=== PATIENT | female | born 1975 | race African-American/Black ===

== ENCOUNTER 2019-02-23 05:59 | Inpatient (IN) | payer OTHER ==
[~2019-02-23] VITALS: Ht 170.2 cm; Wt 68.1 kg
[~2019-02-23 05:59] MED LIST: CORTISONE INJECTION; FLEET ENEMA118 ML RC; HYDROCODONE-AP1 EAC6 PO; MILK OF MA2400 MG/10 PO; NEURONTIN 300300 M1 PO; PHENERGAN 25 MG25 M1 PO; ZOFRAN ODT8 MG PO
[2019-02-23 06:03] VITALS: BP 141/84
[2019-02-23 06:32] LABS: HEMATOCRIT 42.1 % (37.0-47.0); HEMOGLOBIN 13.8 gm/dL (12.0-15.0); LYMPHOCYTES 30.7 % (24.0-44.0); MCH 29.7 pg (26.0-34.0); MCHC 32.8 g/dL (28.0-37.0); MCV 90.6 fL (80.0-100.0); PLATELET COUNT 193 thou/uL (150-400); POLYS 56.3 % (36.0-66.0); RBC 4.65 mil/uL (4.20-5.00); RDW 18.2 % (10.5-14.5); WBC 5.4 thou/uL (4.0-11.0)
[2019-02-23 06:42] LABS: CALCIUM 9.7 mg/dL (8.5-10.1); CREATININE 0.8 mg/dL (0.6-1.0); POTASSIUM 3.4 mmol/L (3.5-5.1)
[2019-02-23 06:48] LABS: ALBUMIN 3.9 g/dL (3.4-5.0); TOTAL BILIRUBIN 0.4 mg/dL (<0.1-1.0); TOTAL PROTEIN 8.1 g/dL (6.4-8.2)
[2019-02-23 07:05] LABS: URINE BILIRUBIN NEGATIVE (Negative); URINE BLOOD NEGATIVE (Negative); URINE CLARITY CLEAR; URINE COLOR YELLOW; URINE GLUCOSE-RANDOM* NEGATIVE (Negative); URINE KETONES NEGATIVE (Negative); URINE LEUKOCYTES-REFLEX NEGATIVE (Negative); URINE NITRITE-REFLEX NEGATIVE (Negative); URINE PROTEIN (DIPSTICK) NEGATIVE (Negative); URINE UROBILINOGEN 0.2 E.U./dl (0.2-1.0)
[2019-02-23 07:13] LABS: AMP/METHAMP Negative (Negative); BARBITURATES Negative (Negative); BENZODIAZEPINES Negative (Negative); COCAINE Negative (Negative); METHADONE Negative (Negative); OPIATES POSITIVE (Negative); PCP Negative (Negative); SSA (PROTEIN CONFIRMATORY) NEGATIVE (Negative)
[2019-02-23 09:14] VITALS: BP 172/76
[2019-02-23 10:09] VITALS: BP 181/75
--- NOTE | 2019-02-23 19:36 | NUR ---
PATIENT ARRIVED AT 0955, ALERT XS 3 VERY SLEEPY. V.S TAKEN, PT HAS ZOFRAN IV. PT TOOK SHOWER RODO. ALL BELONGINGS INVENTORIED. HAS 1 BOTTLE OF TIZANIDINE 4 MG TO BE TAKEN TO PHARMACY. ALSO HAS 92.00 IN COLÓN KEPT 2.00 IN COLÓN AND 2.00 IN QUARTERS. TO KEEP IN ROOM.1 STUN GUN/ TASER AND 2 BULLETS, 1 RADIO MACHINIST 90.00 IN COLÓN PUT IN VALUABLES ENVELOPE SECURITY HERE TO TAKE. ALSO HAD MARJUANNA BLUNT SECURITY INFORMED PATIENT WOULD NOT GET BACK WOULD BE DESTROYED. PT STATED UNDERSTOOD ALSO STATED GUN WAS AT HOME. CHIEF DRAFTER TO HAVE CONSENTS SIGNED. PT IS 5'7 150.2 LBS. PT DRUG SCREEN POSITIVE FOR OPIODS AND MARJUANNA. PT IS PLEASANT AND COOPERATIVE WITH CARE.
[2019-02-23 19:58] VITALS: BP 149/120
[2019-02-24 00:25] VITALS: BP 152/72
[2019-02-24 04:00] VITALS: BP 140/85
--- NOTE | 2019-02-24 06:19 | NUR ---
ASSUMED CARE AT 1900, ASSESSMENT COMPLETED. PT C/O SEVERE NAUSEA WITH VOMITING OF DARK GREEN BILE. ALSO C/O PELVIC AND ABD CRAMPING PAIN THAT SHE STATES FEELS "LIKE WHEN I GET MY CYCLE." OBTAINED ORDERS FOR ADDITIONAL ANTI-EMETICS AND IV TORADOL FOR NAUSEA AND PAIN CONTROL. DENIES SOB. PT HAD SHOWER THIS AM WITH ASSISTANCE FROM MACHINE CARTON MARKER. HAS SLEPT MOST OF THE NIGHT. PT NEVER HAD A STOOL TO SEND FOR C.DIFF SAMPLE. NO OTHER CONCERNS, WILL CONTINUE TO MONITOR.
[2019-02-24 07:25] LABS: ABSOLUTE NEUTROPHILS 5.9 thou/uL (1.4-8.2); BASOPHILS 0.3 % (0.0-2.0); HEMATOCRIT 43.6 % (37.0-47.0); HEMOGLOBIN 14.5 gm/dL (12.0-15.0); LYMPHOCYTES 15.9 % (24.0-44.0); MCH 30.2 pg (26.0-34.0); MCHC 33.2 g/dL (28.0-37.0); MCV 90.8 fL (80.0-100.0); PLATELET COUNT 182 thou/uL (150-400); POLYS 73.8 % (36.0-66.0); RDW 17.8 % (10.5-14.5)
[2019-02-24 07:30] VITALS: BP 163/87
[2019-02-24 07:37] LABS: CALCIUM 9.4 mg/dL (8.5-10.1); CREATININE 0.8 mg/dL (0.6-1.0); MAGNESIUM 1.7 mg/dL (1.8-2.4); POTASSIUM 3.4 mmol/L (3.5-5.1)
--- NOTE | 2019-02-24 08:15 | NUR ---
ASSUMED PT CARE AT 0700. ASSESSMENT COMPLETED AND IS CHARTED. UPON ENTRANCE OF ROOM PT WAS IN BED WITH A MAN SAID TO BE HER BOYFRIEND. THIS PERSON WAS ASKED TO LEAVE THE ROOM IN ORDER TO COMPLETE AN ASSESSMENT ON PATIENT. HE LEFT WILLINGLY AND COOPERATIVELY. PT WAS ASKED WHO THE MAN WAS AND SHE SAID HER BOYFRIEND. WHEN ASKED IF THIS WAS THE MAN WHO SHE HAS A RESTRAINING ORDER AGAINST PT SAID "NO, IT'S MY EX-BOYFRIEND THAT HAS A RESTRAINING ORDER". WHEN ASKED IF SHE FEELS SAFE WITH HIM IN HERE WITH HER SHE STATED YES. PT C/O NAUSEA AND LOWER ABD PAIN SHE STATES FEELS LIKE MENSTRUAL CRAMPS BUT IS NOT DUE FOR HER PERIOD FOR SEVERAL DAYS. ALSO A LOW GRADE TEMPERATURE OF 99.2 AND INCREASED B/P AT 163/87. PAIN AND NAUSEA MEDICATION GIVEN TO PATIENT. WILL CONTINUE TO MONITOR AND CONITINUE CURRENT CARE.
[2019-02-24 14:13] VITALS: BP 164/88
--- NOTE | 2019-02-24 15:28 | NUR ---
PT ADMITTED RELATED TO NV ABD PAIN. CM REVIEWED CHART AND SPOKE WITH CARE TEAM. CM MET WITH PT AT BEDSIDE THIS DAY. PT INDICATED THAT SHE LIVES IN A HOUSE WITH HER KIDS AND FRIENDS. 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 PT INDICATED THERE ARE 2 STEPS TO ENTER THE HOUSE AND 13 STEPS TO BASEMENT LAUNDRY. PT INDICATED SHE PLANS TO RETURN HOME ONCE MEDICALLY STABLE. PT INDICATED SHE DOESN'T HAVE A PCP AND IS INTERESTED IN A [facility] NET CLINIC PACKET CM TO PROVIDE ONE. PT'S CONTACT IS NAILA VELARDE . CM TO FOLLOW INDICATED WITH DC PLANNING.
--- NOTE | 2019-02-24 16:44 | NUR ---
PT CONTINUES TO SLEEP MOST OF THE TIME. NOT TOLERATING FOOD WELL. HAS ONLY TAKEN IN CLEAR LIQUIDS THOUGH FULL LIQUID WAS OFFERED. CONTINUING PAIN AND NAUSEA MEDICATION. WILL CONTINUE TO MONITOR.
[2019-02-25 05:40] VITALS: BP 140/86
[2019-02-25 08:12] VITALS: BP 148/88
--- NOTE | 2019-02-25 08:20 | NUR ---
ASSUMED PT CARE 0. PT ALERT AND ORIENTED, DROWSY. VSS. IV DRESSING C/D/I, NO SIGNS OF INFILTRATION. PT REPORTS ABD PAIN AND NAUSEA, SEE EMAR. PT SLEPT ALL EVENING, WITH BOYFRIEND IN ROOM. REPORT GIVEN TO AM NURSE.
[2019-02-25 11:00] LABS: HEMATOCRIT 43.5 % (37.0-47.0); HEMOGLOBIN 14.6 gm/dL (12.0-15.0); MCH 30.4 pg (26.0-34.0); MCHC 33.5 g/dL (28.0-37.0); MCV 90.9 fL (80.0-100.0); RBC 4.79 mil/uL (4.20-5.00); RDW 18.3 % (10.5-14.5)
[2019-02-25 11:06] LABS: CALCIUM 8.9 mg/dL (8.5-10.1); CREATININE 0.9 mg/dL (0.6-1.0); MAGNESIUM 2.1 mg/dL (1.8-2.4); POTASSIUM 3.5 mmol/L (3.5-5.1)
--- NOTE | 2019-02-25 18:37 | NUR ---
ASSUMED CARE AT 0700, SHIFT ASSESSMENT DONE, MEDS GIVEN, VSS. REPORTED NAUSEA AND PAIN MSOT OF THE DAY, PRN PAIN MEDS GIVEN ORDERED. TOOKS HOWER TWICE, INDICATED THAT MAKES HER PAIN BETTER. RECEIVING IV FLUIDS, ADVACNED TO SOFT DIET, NOT TOLERATING WELL. WILL CONTINUE TO ASSESS AND ASSIST [facility] ADLs NEEDED.
[2019-02-25 20:00] VITALS: BP 120/80
--- NOTE | 2019-02-26 03:44 | NUR ---
Assumed care of pt at 1900. Pt alert and oriented x4. Anti-emetics administered throughout shift. Pt resting comfortably in bed at this time. Pt boyfriend at bedside. No other complaints at this time. Will continue to monitor and assist with needs as they arise.
[2019-02-26 05:20] VITALS: BP 136/93
[2019-02-26 05:20] LABS: HEMATOCRIT 43.9 % (37.0-47.0); HEMOGLOBIN 14.5 gm/dL (12.0-15.0); MCH 30.3 pg (26.0-34.0); MCHC 33.1 g/dL (28.0-37.0); MCV 91.5 fL (80.0-100.0); RBC 4.8 mil/uL (4.20-5.00); RDW 18.2 % (10.5-14.5); WBC 5.7 thou/uL (4.0-11.0)
[2019-02-26 05:55] LABS: CALCIUM 8.5 mg/dL (8.5-10.1); CREATININE 0.8 mg/dL (0.6-1.0); MAGNESIUM 1.8 mg/dL (1.8-2.4); POTASSIUM 3.2 mmol/L (3.5-5.1)
[2019-02-26 08:18] VITALS: BP 118/73
--- NOTE | 2019-02-26 08:31 | NUR ---
ASSESMENT COMPLETED. VSS. A/O. C/O PAIN MANAGED BY MEDS ORDERED. NO NOTED SOA. NO NV. UP AD SOFÍA. PT WANTS TO WALK AROUND AND STEP OFF UNIT. PT ACCOMPANIED BY SALES PROJECT COORDINATOR PER PROTOCOL. WILL CONT. TO MONITOR.
[2019-02-26 12:39] VITALS: BP 118/73
--- NOTE | 2019-02-26 14:02 | NUR ---
DC ORDERS RECEIVED. DC INSTRUCTIONS GIVEN TO PT. PT VERBALIZED UNDERSTANDING. PT TO DC HOME IN STABEL CONDITION. IV DCD.
== END 2019-02-26 14:03 | disposition home or self-care (01) | DRG 392 ==
LOC: ER 05:59 → 4E 09:00 → EROBS 09:00 → 4E 10:03
PROVIDERS: Emergency Medicine; Nurse Practitioner; ADMIT Internal Medicine
DX: K52.9 Noninfective gastroenteritis and colitis, unspecified (principal); K21.9 Gastro-esophageal reflux disease without esophagitis; G89.29 Other chronic pain; M54.9 Dorsalgia, unspecified; F17.210 Nicotine dependence, cigarettes, uncomplicated; E87.6 Hypokalemia; F12.10 Cannabis abuse, uncomplicated; F19.10 Other psychoactive substance abuse, uncomplicated; E83.42 Hypomagnesemia; Z79.899 Other long term (current) drug therapy
CPT/HCPCS: 10084

== ENCOUNTER 2019-04-05 12:20 | Emergency (ER) | payer OTHER ==
[~2019-04-05] VITALS: Ht 170.2 cm; Wt 59.0 kg
[2019-04-05 12:54] LABS: ABSOLUTE NEUTROPHILS 3.2 thou/uL (1.4-8.2); BASOPHILS 0.6 % (0.0-2.0); EOSINOPHILS 0.3 % (0.0-3.0); HEMATOCRIT 43.8 % (37.0-47.0); HEMOGLOBIN 14.6 gm/dL (12.0-15.0); LYMPHOCYTES 28.9 % (24.0-44.0); MCH 30.5 pg (26.0-34.0); MCHC 33.4 g/dL (28.0-37.0); MCV 91.2 fL (80.0-100.0); MONOCYTES 9.1 % (1.0-8.0); PLATELET COUNT 267 thou/uL (150-400); POLYS 61.1 % (36.0-66.0); WBC 5.2 thou/uL (4.0-11.0)
[2019-04-05 13:02] LABS: URINE BILIRUBIN NEGATIVE (Negative); URINE BLOOD 1+ (Negative); URINE CLARITY CLOUDY; URINE COLOR YELLOW; URINE GLUCOSE-RANDOM* NEGATIVE (Negative); URINE KETONES 2+ (Negative); URINE LEUKOCYTES NEGATIVE (Negative); URINE NITRITE POSITIVE (Negative); URINE PROTEIN (DIPSTICK) 1+ (Negative); URINE SPECIFIC GRAVITY 1.025 (1.005-1.035); URINE UROBILINOGEN 0.2 E.U./dl (0.2-1.0)
[2019-04-05 13:23] LABS: BACTERIA >30 Many /HPF (None Seen); CASTS None Seen /LPF (None Seen); CRYSTALS None Seen /LPF (None Seen); SQUAMOUS None Seen /LPF (0-3); URINE RBC 0-2 Rare /HPF (0-2); URINE WBC 0-5 Rare /HPF (0-5)
[2019-04-05 15:07] LABS: CALCIUM 10.1 mg/dL (8.5-10.1); CREATININE 0.8 mg/dL (0.6-1.0); POTASSIUM 3.8 mmol/L (3.5-5.1)
[2019-04-05 15:13] LABS: ALBUMIN 4.4 g/dL (3.4-5.0); TOTAL BILIRUBIN 0.8 mg/dL (<0.1-1.0); TOTAL PROTEIN 9.1 g/dL (6.4-8.2)
[2019-04-05 18:50] VITALS: BP 156/97
[2019-04-05] MEDS ORDERED: AUGMENTIN 500-1 EACH PO (19:14)
[2019-04-05] MEDS ORDERED: PRILOSEC OTC20 MG PO (19:14)
[2019-04-05] MEDS ORDERED: NORCO 10-325 T1 EACH PO (19:14)
[2019-04-05] MEDS ORDERED: REGLAN 10 MG TA10 MG PO (19:14)
== END 2019-04-05 19:25 | disposition home or self-care (01) ==
LOC: ER 12:20
PROVIDERS: Emergency Medicine
DX: K52.9 Noninfective gastroenteritis and colitis, unspecified (principal); K29.70 Gastritis, unspecified, without bleeding; N39.0 Urinary tract infection, site not specified; K21.9 Gastro-esophageal reflux disease without esophagitis; F17.210 Nicotine dependence, cigarettes, uncomplicated; Z88.6 Allergy status to analgesic agent; Z98.51 Tubal ligation status

== ENCOUNTER 2019-04-23 15:58 | Emergency (ER) | payer OTHER ==
[~2019-04-23] VITALS: Ht 170.2 cm; Wt 58.9 kg
[~2019-04-23 15:58] MED LIST changes: +AUGMENTIN 500-1 EACH PO; +NORCO 10-325 T1 EACH PO; +PRILOSEC OTC20 MG PO; +REGLAN 10 MG TA10 MG PO
[2019-04-23 16:38] LABS: URINE BILIRUBIN NEGATIVE (Negative); URINE BLOOD NEGATIVE (Negative); URINE CLARITY SL CLOUDY; URINE COLOR YELLOW; URINE GLUCOSE-RANDOM* NEGATIVE (Negative); URINE KETONES NEGATIVE (Negative); URINE LEUKOCYTES-REFLEX NEGATIVE (Negative); URINE PROTEIN (DIPSTICK) TRACE (Negative); URINE UROBILINOGEN 0.2 E.U./dl (0.2-1.0)
[2019-04-23 16:39] LABS: URINE NITRITE-REFLEX POSITIVE (Negative)
[2019-04-23 16:40] LABS: HEMATOCRIT 40.7 % (37.0-47.0); HEMOGLOBIN 13.3 gm/dL (12.0-15.0); MCH 29.9 pg (26.0-34.0); MCHC 32.8 g/dL (28.0-37.0); MCV 91.3 fL (80.0-100.0); PLATELET COUNT 246 thou/uL (150-400); RBC 4.45 mil/uL (4.20-5.00); RDW 17.4 % (10.5-14.5); WBC 6.1 thou/uL (4.0-11.0)
[2019-04-23 16:47] LABS: CALCIUM 9.6 mg/dL (8.5-10.1); CREATININE 0.7 mg/dL (0.6-1.0); POTASSIUM 3.7 mmol/L (3.5-5.1)
[2019-04-23 16:52] LABS: TOTAL BILIRUBIN 0.4 mg/dL (<0.1-1.0); TOTAL PROTEIN 8.4 g/dL (6.4-8.2)
[2019-04-23 17:01] LABS: BACTERIA-REFLEX >30 Many /HPF (None Seen); CASTS None Seen /LPF (None Seen); CRYSTALS None Seen /LPF (None Seen); SQUAMOUS 4-10 Moderate /LPF (0-3); URINE RBC None Seen /HPF (0-2); URINE WBC-REFLEX 6-15 Few /HPF (0-5)
[2019-04-23 17:02] LABS: ABSOLUTE NEUTROPHILS 3.7 thou/uL (1.4-8.2); ANISOCYTOSIS 1+
[2019-04-23 17:05] LABS: AMP/METHAMP Negative (Negative); BARBITURATES Negative (Negative); BENZODIAZEPINES Negative (Negative); COCAINE POSITIVE (Negative); METHADONE Negative (Negative); OPIATES POSITIVE (Negative); PCP Negative (Negative)
[2019-04-23] MEDS ORDERED: ONDANSETRON HCL4 M2 PO (19:17)
[2019-04-23] MEDS ORDERED: BENTYL 20 MG TA20 M1 PO (19:17)
[2019-04-23] MEDS ORDERED: PRILOSEC 20 MG20 MG PO (19:17)
[2019-04-23] MEDS ORDERED: KEFLEX500 M1 PO (19:56)
[2019-04-23 20:01] VITALS: BP 148/93
== END 2019-04-23 20:46 | disposition home or self-care (01) ==
LOC: ER 15:58
PROVIDERS: Physician Assistant
DX: N39.0 Urinary tract infection, site not specified (principal); F19.10 Other psychoactive substance abuse, uncomplicated; R11.2 Nausea with vomiting, unspecified; F17.210 Nicotine dependence, cigarettes, uncomplicated; K21.9 Gastro-esophageal reflux disease without esophagitis; Z88.6 Allergy status to analgesic agent